=== PATIENT | female | born 1985 | race Caucasian/White ===

== ENCOUNTER 2023-03-09 15:21 | Outpatient (CLI) | payer MEDICAID, SELFPAY | END 2023-03-09 15:22 | disposition home or self-care (01) | PROVIDERS: PCP Family Medicine; Visit Provider Family Medicine | DX: Z00.00 Encounter for general adult medical examination without abnormal findings (principal); R53.83 Other fatigue | CPT/HCPCS: 80053; 82306; 84443; 86039; 86376; 86663 ==

== ENCOUNTER 2023-05-24 13:48 | Emergency (ER) | payer MEDICAID, SELFPAY ==
[2023-05-24 13:51] VITALS: BP 114/81; PULSE 77; RESP 16; TEMP 36.1; O2SAT 100; BMI 23.0
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
--- NOTE | 2023-05-24 14:56 | CRLHL7_ITS ---
For Patients: As a result of the Century Cures Act, medical imaging exams and procedure reports are released immediately into your electronic medical record. You may view this report before your referring provider. If you have questions, please contact your health care provider. INDICATION: Left adnexal pelvic pain. TECHNIQUE: Ultrasound pelvis transabdominal and transvaginal. Real-time sonographic images with spectral and color Doppler imaging of the ovaries were obtained. COMPARISON: November 06, 2020. FINDINGS: Uterus: Post hysterectomy. Right ovary 3 x 2 x 2 cm. Left ovary 4 x 3 x 2 cm. No ovarian or adnexal masses. Normal arterial and venous blood flow is demonstrated in both ovaries. Cul-de-sac: No significant free fluid. IMPRESSION: Post hysterectomy. Otherwise unremarkable pelvic ultrasound. Normal ovaries and adnexa. No finding to explain left adnexal pain. Dictated by Jr Ledezma MD @ 05/24/2023 5:08:20 PM (Electronically Signed)
[2023-05-24] MEDS: 0.9 % SODIUM CHLORIDE 1000 ml 1,000 ML IV (15:15)
[2023-05-24 15:24] LABS: Appearance Urine Clear (Clear); Bilirubin Urine Negative (Negative); Blood Urine Negative (Negative); Color Urine Yellow (Yellow); Glucose Urine Negative (Negative); Ketones Urine 1+ (Negative); Leukocyte Esterase Urine Negative (Negative); Nitrite Urine Negative (Negative); Protein Urine Negative (Negative); Urobilinogen Urine 0.2 (0.2-1.0)
[2023-05-24 15:39] LABS: Basophils Absolute Auto 0.03 K/uL (0.00-0.30); Basophils Percent Auto 0.4 % (0.0-3.0); Eosinophils Percent Auto 1.2 % (0.0-7.0); Hematocrit 42.6 % (33.0-51.0); Hemoglobin* 14.5 gm/dL (12.0-16.0); Immature Granulocytes Abs Auto 0.02 K/uL (0.00-0.30); Immature Granulocytes Pct Auto 0.2 %; Lymphocytes Absolute Auto 2.26 K/uL (0.90-2.90); Lymphocytes Percent Auto 27.1 % (20-44); Mean Corpuscular HGB Conc 34 gm/dL (32-36); Mean Corpuscular Hemoglobin 30 pg (26-34); Mean Corpuscular Volume 87 fL (80-100); Monocytes Percent Auto 4.7 % (0.0-11.0); Neutrophils Absolute Auto 5.54 K/uL (1.7-7.0); Neutrophils Percent Auto 66.4 % (42.0-72.0); Platelet Count* 335 K/uL (140-440); RDW Coefficient of Variation % 11.4 % (11.5-15.5); Red Blood Count 4.89 m/uL (4.00-5.20); White Blood Count* 8.34 K/uL (4.50-11.00)
[2023-05-24 15:39] LABS: RBC Urine 0-2 (0-2); Squamous Epithelial Cell Urine Moderate (None-Few); WBC Urine 0-2 (0-5)
[2023-05-24 15:41] LABS: Slide Review Reflex No
[2023-05-24 15:58] LABS: Chloride* 107 mmol/L (96-114); Potassium* 3.3 mmol/L (3.6-5.1); Sodium* 142 mmol/L (135-149)
[2023-05-24 15:58] LABS: PCR FLU A Negative PCR FLU A (Negative); PCR FLU B Negative PCR FLU B (Negative)
[2023-05-24 16:01] LABS: Anion Gap 10 mEq/L (7-15); Blood Urea Nitrogen* 8 mg/dL (5-24); Carbon Dioxide* 25 mmol/L (20-32); Creatinine* 0.7 mg/dL (0.5-1.5); Est. Creatinine Clearance* 91.91; Estimated Glomerular Filt Rate 115 ml/min
[2023-05-24 16:02] LABS: SARS PCR* Negative SARS-CoV-2 (Negative)
[2023-05-24 16:02] LABS: Calcium* 9.6 mg/dL (8.4-10.6); Glucose* 74 mg/dL (60-115)
[2023-05-24 16:04] LABS: C Reactive Protein* 0.7 mg/dL (0.5-1.0)
[2023-05-24 17:07] LABS: Erythrocyte SedimentationRate* 7 mm/hr (2-20)
[2023-05-24] MEDS: LIDOCAINE 5% PATCH 1 PATCH TRANSDERMA (17:16)
== END 2023-05-24 17:19 | disposition home or self-care (01) ==
PROVIDERS: Emergency Provider Family Medicine; PCP Family Medicine
DX: M54.50 Low back pain, unspecified (principal); L01.00 Impetigo, unspecified
CPT/HCPCS: 36415; 76830; 80048; 81001; 85025; 85651; 86140; 87631; 93976; 96361; 96374; 99284; A9270; J7030

== ENCOUNTER 2023-07-09 05:28 | Emergency (ER) | payer MEDICAID, SELFPAY ==
[2023-07-09 05:39] VITALS: BP 123/85; PULSE 104; RESP 20; TEMP 36.4; O2SAT 100
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
[2023-07-09] MEDS: cefTRIAXone 1 GM VIAL IM (07:58)
[2023-07-09] MEDS: LIDOCAINE 1% 5 ml (pf) 5 ML VIAL 2.1 ML IM (07:59)
== END 2023-07-09 08:15 | disposition home or self-care (01) ==
PROVIDERS: Emergency Provider Family Medicine; PCP Family Medicine
DX: L01.00 Impetigo, unspecified (principal)
CPT/HCPCS: 87070; 96372; 99283; 99284; J0696

== ENCOUNTER 2023-08-15 11:28 | Outpatient (CLI) | payer MEDICAID, SELFPAY | END 2023-08-15 11:29 | disposition home or self-care (01) | PROVIDERS: PCP Family Medicine; Visit Provider Family Medicine | DX: Q99.8 Other specified chromosome abnormalities (principal); R11.0 Nausea; R53.82 Chronic fatigue, unspecified | CPT/HCPCS: 80053; 82570; 82728; 83540; 83550; 84311; 86235; 86376 ==

== ENCOUNTER 2023-09-20 09:20 | Outpatient (CLI) | payer MEDICAID, SELFPAY ==
--- NOTE | 2023-09-20 09:45 | MM_ITS ---
Patient: SUDHAKAR MEZA Facility:?[facility] Patient ID:?[id number] Site Patient ID:?[id number] Site :?1985 Study:?XRay-Breast Bilateral 3D W/CAD-09/20/2023 2:02:28 PM Ordering Physician:?Sarah Bryant Final Report: BILATERAL DIAGNOSTIC MAMMOGRAM WITH COMPUTER-AIDED DETECTION AND TOMOSYNTHESIS RIGHT BREAST ULTRASOUND CLINICAL HISTORY: RIGHT breast skin redness. COMPARISON: None. Baseline study. TECHNIQUE: Digital BILATERAL mammogram in 4 projections with computer-aided detection and tomosynthesis Real-time ultrasound imaging of RIGHT breast with imaging documentation. Scanning was performed by both the technologist and the radiologist. BREAST COMPOSITION: There are scattered areas of fibroglandular density. FINDINGS: 3D CC/MLO bilateral mammogram images submitted. No suspicious masses or architectural distortion. No suspicious calcifications or adenopathy. Targeted right breast ultrasound performed. At 3 o?clock 2 cm from the nipple, there is a focal area of skin redness. No underlying cystic change or mass. No abscess. No abnormal vascularity. IMPRESSION: Normal bilateral mammograms and no suspicious findings on targeted ultrasound right breast. RECOMMENDATIONS: Surgical consultation for consideration of punch biopsy of the skin redness right breast. Results and recommendations discussed with the patient. BI-RADS Category 2: Benign. Dictated by Reno Goetz MD @ 09/20/2023 12:59:[address]/Dictated by: Reno Goetz MD @ 09/20/2023 2:05:00 PM Signed by:?Reno Goetz MD @09/20/2023 2:16:27 PM (Electronic Signature)
--- NOTE | 2023-09-20 10:15 | US_ITS ---
Patient: SUDHAKAR MEZA Facility:?[facility] Patient ID:?[id number] Site Patient ID:?[id number]. Site :?1985 Study:?US-Breast Right DR LEDEZMA TO READ-09/20/2023 10:10:11 AM Ordering Physician:?SANJUANA DURHAM Final Report: PLEASE SEE BILATERAL DIAGNOSTIC MAMMOGRAM OF SAME DAY FOR COMBINED REPORT. CRL:anabell RD/Dictated by: Reno Ledezma MD @ 09/20/2023 12:59:00 PM Signed by:?Reno Ledezma MD @09/20/2023 2:16:22 PM (Electronic Signature)
== END 2023-09-20 09:21 | disposition home or self-care (01) ==
LOC: MAMMO 09:21
PROVIDERS: PCP Family Medicine; Visit Provider Family Medicine
DX: L98.8 Other specified disorders of the skin and subcutaneous tissue (principal)
CPT/HCPCS: 76642; 77066; G0279